=== PATIENT | female | born 2000 | race Caucasian/White ===

== ENCOUNTER 2020-06-05 18:37 | Emergency (ER) | payer OTHER ==
[~2020-06-05] VITALS: Ht 170.1 cm; Wt 70.4 kg
[2020-06-05 19:00] LABS: BILIRUBIN,URINE NEGATIVE (NEGATIVE); CLARITY,URINE CLEAR; COLOR,URINE YELLOW; GLUCOSE, URINE (UA) NEGATIVE (NEGATIVE); KETONES,URINE NEGATIVE (NEGATIVE); LEUKOCYTE ESTERASE ,URINE NEGATIVE (NEGATIVE); NITRITE,URINE NEGATIVE (NEGATIVE); PH,URINE 7.5 (5-9); PROTEIN,URINE NEGATIVE (NEGATIVE)
[2020-06-05 19:07] LABS: BACTERIA,URINE NEGATIVE /HPF
[2020-06-05] MEDS ORDERED: KETOROLAC 30 MG/ML VIAL IVP STA (19:08)
--- NOTE | 2020-06-05 19:13 | ED Abdominal Pain ---
General Chief Complaint: Abdominal/GI Problems Stated Complaint: R SIDE/ABD PAIN Nursing Triage Note: AMB TO ROOM C/O L LOWER QUAD PAIN FOR 2 DAYS Sepsis Screen: No Definite Risk History of Present Illness Date Seen by Provider: Jun 05, 2020 Time Seen by Provider: 18:45 Initial Comments 19-year-old female presents for left lower quadrant pain that has been present for 2 days. She last took Tylenol at 11:00 today with no improvement in her symptoms, she has not taken any NSAIDs. She has a previous history of ovarian cyst she is unsure of which side. She has had no previous abdominal surgeries. She does have a history of IBS and has noted watery diarrhea for the last 2 days as well. She has had limited p.o. food intake today. She has been drinking water. She has not been seen by her primary care provider or [facility] for the symptoms. She denies any vomiting. She had some mild nausea earlier today and took promethazine with improvement in her symptoms. She has not taken any antidiarrheal medicine. She has a family history of diverticulitis but no personal history. Her LMP was 05/27/2020. Allergies and Home Medications Allergies Coded Allergies: No Known Drug Allergies (Unverified , 06/05/20) Patient Home Medication List Home Medication List Reviewed: Yes Review of Systems Review of Systems Constitutional: no symptoms reported, see HPI Gastrointestinal: See HPI, Abdominal Pain, Poor Appetite Genitourinary: No Symptoms Reported, See HPI; Denies Burning, Denies Frequency, Denies Flank Pain, Denies Hematuria, Denies Pain, Denies Urgency All Other Systems Reviewed Negative Unless Noted: Yes Past [id number] Hx Past Med/Social Hx: Reviewed and Corrections made Patient Social History Alcohol Use: Occasionally Uses Smoking Status: Never a Smoker Recent Infectious Disease Expo: No Past Medical History Surgeries: No Respiratory: No Cardiac: No Neurological: No : No Last Menstrual Period: May 27, 2020 Female Reproductive Disorders: Ovarian Cyst Genitourinary: No Gastrointestinal: No Musculoskeletal: No Endocrine: No HEENT: No Cancer: No Psychosocial: No Integumentary: No Physical Exam Vital Signs Vital Signs - First Documented 06/05/20 18:43 Temp 37.2 Pulse 87 Resp 18 B/P (MAP) 143/93 (110) Pulse Ox 98 O2 Delivery Room Air Capillary Refill : Less Than 3 Seconds Height/Weight/BMI Height: '" Weight: lbs. oz. kg; 24.00 BMI Method: General Appearance: WD/WN, no apparent distress HEENT: PERRL/EOMI, normal ENT inspection, TMs normal, pharynx normal Neck: non-tender, full range of motion, supple, normal inspection Respiratory: chest non-tender, lungs clear, normal breath sounds Cardiovascular: normal peripheral pulses, regular rate, rhythm Gastrointestinal: normal bowel sounds, soft; No distended, No guarding, No rebound; tenderness (Left lower quadrant and periumbilical.); No mass Back: normal inspection, no CVA tenderness, no vertebral tenderness Neurologic/Psychiatric: no motor/sensory deficits, alert, normal mood/affect, oriented x 3 Skin: normal color, warm/dry Progress/Results/Core Measures Results/Orders Lab Results Laboratory Tests Test 06/05/20 18:48 06/05/20 19:19 Range/Units Urine Color YELLOW Urine Clarity CLEAR Urine pH 7.5 5-9 Urine Specific [place] 1.015 L 1.016-1.022 Urine Protein NEGATIVE NEGATIVE Urine Glucose (UA) NEGATIVE NEGATIVE Urine Ketones NEGATIVE NEGATIVE Urine Nitrite NEGATIVE NEGATIVE Urine Bilirubin NEGATIVE NEGATIVE Urine Urobilinogen 0.2 < = 1.0 MG/DL Urine Leukocyte Esterase NEGATIVE NEGATIVE Urine RBC (Auto) 1+ H NEGATIVE Urine RBC 10-25 H /HPF Urine WBC NONE /HPF Urine Squamous Epithelial Cells 2-5 /HPF Urine Crystals NONE /LPF Urine Bacteria NEGATIVE /HPF Urine Casts NONE /LPF Urine Mucus NEGATIVE /LPF Urine Culture Indicated NO White Blood Count 7.6 4.3-11.0 10^3/uL Red Blood Count 4.98 3.80-5.11 10^6/uL Hemoglobin 15.1 11.5-16.0 g/dL Hematocrit 44 35-52 % Mean Corpuscular Volume 89 80-99 fL Mean Corpuscular Hemoglobin 30 25-34 pg Mean Corpuscular Hemoglobin Concent 34 32-36 g/dL Red Cell Distribution Width 12.1 10.0-14.5 % Platelet Count 318 130-400 10^3/uL Mean Platelet Volume 10.3 9.0-12.2 fL Immature Granulocyte % (Auto) 0 % Neutrophils (%) (Auto) 47 42-75 % Lymphocytes (%) (Auto) 45 H 12-44 % Monocytes (%) (Auto) 7 0-12 % Eosinophils (%) (Auto) 1 0-10 % Basophils (%) (Auto) 1 0-10 % Neutrophils # (Auto) 3.6 1.8-7.8 10^3/uL Lymphocytes # (Auto) 3.4 1.0-4.0 10^3/uL Monocytes # (Auto) 0.5 0.0-1.0 10^3/uL Eosinophils # (Auto) 0.1 0.0-0.3 10^3/uL Basophils # (Auto) 0.1 0.0-0.1 10^3/uL Immature Granulocyte # (Auto) 0.0 0.0-0.1 10^3/uL Sodium Level 140 135-145 MMOL/L Potassium Level 3.7 3.6-5.0 MMOL/L Chloride Level 103 98-107 MMOL/L Carbon Dioxide Level 24 21-32 MMOL/L Anion Gap 13 5-14 MMOL/L Blood Urea Nitrogen 8 7-18 MG/DL Creatinine 0.75 0.60-1.30 MG/DL Estimat Glomerular Filtration Rate > 60 BUN/Creatinine Ratio 11 Glucose Level 82 70-105 MG/DL Calcium Level 9.6 8.5-10.1 MG/DL Corrected Calcium 8.5-10.1 MG/DL Total Bilirubin 1.0 0.1-1.0 MG/DL Aspartate Amino Transf (AST/SGOT) 20 5-34 U/L Alanine Aminotransferase (ALT/SGPT) 13 0-55 U/L Alkaline Phosphatase 77 40-136 U/L Total Protein 8.5 H 6.4-8.2 GM/DL Albumin 4.7 H 3.2-4.5 GM/DL My Orders Orders - JUANY RAO Cbc With Automated Diff (06/05/20 19:04) Comprehensive Metabolic Panel (06/05/20 19:04) Ed Iv/Invasive Line Start (06/05/20 19:04) Ns Iv 1000 Ml (Sodium Chloride 0.9%) (06/05/20 19:15) Ketorolac Injection (Toradol Injection) (06/05/20 19:08) Vital Signs/I&O 06/05/20 06/05/20 18:43 20:18 Temp 37.2 36.9 Pulse 87 73 Resp 18 17 B/P (MAP) 143/93 (110) 106/71 (110) Pulse Ox 98 99 O2 Delivery Room Air Room Air Blood Pressure Mean: 110 Progress Progress Note : Time: 18:45 Progress Note Patient seen and evaluated, will obtain labs, patient understands that we do not have ultrasound available after 4 PM. Toradol 30 mg IV and normal saline 1 L. 1944 patient reports slight improvement in pain after the Toradol. Labs essentially all normal. No diarrhea while admitted to the emergency department. Discharge instructions and return precautions reviewed with the patient. All questions answered. Departure Impression Primary Impression: Abdominal pain Qualified Codes: R10.30 - Lower abdominal pain, unspecified Additional Impression: Diarrhea Qualified Codes: R19.7 - Diarrhea, unspecified Disposition: 01 HOME, SELF-CARE Condition: Improved Departure-Patient Inst. Decision time for Depature: 19:45 Referrals: NO,LOCAL PHYSICIAN (PCP) Primary Care Physician DEDRA TROY MD Patient Instructions: Diarrhea and Travelers' Diarrhea, Adult (DC), Ovarian Cyst (DC) Add. Discharge Instructions: Clear liquid diet for the next 4 to 6 hours and then bland diet as tolerated. Use an [id number] antidiarrheal medicine every 4-6 hours as needed. Increase water intake, 16 ounces every 2 hours while awake. Alternate between ibuprofen 600 mg and Tylenol 650 mg every 4 hours. Follow-up with [facility] [place] tomorrow if symptoms are not improving or worsen. Return to the emergency department for new, urgent healthcare needs. All discharge instructions reviewed with patient and/or family. Voiced understanding. Copy Copies To 1: DEDRA TROY MDEJUANY [facility] Jun 05, 2020 19:13
[2020-06-05] MEDS ORDERED: NS IV 1000 ML 1,000 ML IV SCH (19:15)
[2020-06-05 19:32] LABS: BASOPHILS # (AUTO) 0.1 10^3/uL (0.0-0.1); BASOPHILS % (AUTO) 1 % (0-10); EOSINOPHILS # (AUTO) 0.1 10^3/uL (0.0-0.3); EOSINOPHILS % (AUTO) 1 % (0-10); HEMATOCRIT 44 % (35-52); HEMOGLOBIN 15.1 g/dL (11.5-16.0); LYMPHOCYTES # (AUTO) 3.4 10^3/uL (1.0-4.0); LYMPHOCYTES % (AUTO) 45 % (12-44); MEAN CORPUSCULAR HEMOGLOBIN 30 pg (25-34); MEAN CORPUSCULAR HGB CONC 34 g/dL (32-36); MEAN CORPUSCULAR VOLUME 89 fL (80-99); MEAN PLATELET VOLUME 10.3 fL (9.0-12.2); MONOCYTES # (AUTO) 0.5 10^3/uL (0.0-1.0); MONOCYTES % (AUTO) 7 % (0-12); NEUTROPHILS # (AUTO) 3.6 10^3/uL (1.8-7.8); NEUTROPHILS % (AUTO) 47 % (42-75); PLATELET COUNT 318 10^3/uL (130-400); WHITE BLOOD COUNT 7.6 10^3/uL (4.3-11.0)
[2020-06-05 19:53] LABS: ALANINE AMINOTRANSFERASE 13 U/L (0-55); ALBUMIN 4.7 GM/DL (3.2-4.5); ALKALINE PHOSPHATASE 77 U/L (40-136); BUN/CREATININE RATIO 11; CALCIUM 9.6 MG/DL (8.5-10.1); CARBON DIOXIDE 24 MMOL/L (21-32); CHLORIDE 103 MMOL/L (98-107); CREATININE SERUM 0.75 MG/DL (0.60-1.30); GFR ESTIMATED > 60; GLUCOSE 82 MG/DL (70-105); POTASSIUM 3.7 MMOL/L (3.6-5.0); SODIUM 140 MMOL/L (135-145); TOTAL PROTEIN 8.5 GM/DL (6.4-8.2)
[2020-06-05 20:18] VITALS: BP 106/71
== END 2020-06-05 20:18 | disposition home or self-care (01) ==
LOC: ER 18:40
DX: R19.7 Diarrhea, unspecified (principal)
CPT/HCPCS: 36415; 80053; 81000; 84703; 85025